=== PATIENT | female | born 1950 | race Caucasian/White ===

== ENCOUNTER 2017-12-30 13:44 | Outpatient (CLI) | payer MEDICARE | END 2017-12-30 13:45 | disposition home or self-care (01) | LOC: BICMAMMO 13:44 | PROVIDERS: ATTEND Family Medicine | DX: Z13.820 Encounter for screening for osteoporosis (principal) | CPT/HCPCS: 77080 ==

== ENCOUNTER 2019-04-08 20:52 | Emergency (ER) | payer MEDICARE, OTHER ==
[2019-04-08] MEDS ORDERED: Adacel (T-DAP) 0.5 ML SYRINGE ONE (21:22)
--- NOTE | 2019-04-08 21:49 | CT ---
EXAM: CT brain without contrast HISTORY: Fall with head trauma COMPARISON: None TECHNIQUE: Multiple contiguous axial images were obtained and a CT of the brain without contrast. FINDINGS: There are scattered hypodensities in the subcortical and periventricular white matter consi stent with small vessel ischemic disease. There is no evidence of hydrocephalus, intracranial hemorrhage, or extra-axial fluid collection. The calvarium and overlying soft tissues are unremarkable. The visualized paranasal sinuses and masto id air cells are well aerated. IMPRESSION: No evidence of acute intracranial abnormality
--- NOTE | 2019-04-08 21:53 | CT ---
EXAM: CT of the cervical spine without contrast HISTORY: Neck pain after head trauma COMPARISON: None TECHNIQUE: Multiple contiguous axial images were obtained in a CT of the cervical spine without contr ast. Sagittal and coronal reformats were performed. FINDINGS: The vertebral bodies demonstrate normal height and alignment without fracture or subluxatio n. Mild to moderate degenerative changes are seen throughout the cervical spine with intervertebral disc space narrowing and osteophyte formation. No prevertebral soft tissue swelling is seen. The posterior facets are well aligned. Normal alignment of the skull base with the cervical spine is seen. The lung apices and cervical soft tissues are unremarkable. IMPRESSION: No evidence of acute osseous abnormality of the cervical spine.
--- NOTE | 2019-04-08 22:06 | RAD ---
EXAM: 4 views of the left knee HISTORY: Knee pain after fall COMPARISON: None FINDINGS: No knee effusion is seen. There is no evidence of acute fracture or dislocation. Moderate t o severe tricompartmental degenerative changes are seen. No soft tissue swelling is present. IMPRESSION: Severe left knee osteoarthritis without acute osseous abnormality.
[2019-04-08] MEDS ORDERED: Lidocaine 1% w/Epinephrine 1:100K 20 ML VIAL ONE (22:42)
== END 2019-04-09 00:23 | disposition home or self-care (01) ==
LOC: ERS 20:52
DX: S01.81XA Laceration without foreign body of other part of head, initial encounter (principal); H11.32 Conjunctival hemorrhage, left eye; E11.9 Type 2 diabetes mellitus without complications; F32.9 Major depressive disorder, single episode, unspecified; W01.0XXA Fall on same level from slipping, tripping and stumbling without subsequent striking against object, initial encounter
CPT/HCPCS: 12014; 70450; 72125; 90471; 90715